=== PATIENT | male | born 1995 | race Caucasian/White ===

== ENCOUNTER 2016-08-08 16:18 | Emergency (ER) | payer OTHER ==
--- NOTE | 2016-08-08 17:28 | ED NURSING NOTES ---
Clinical Report - Nurses [facility] [address] [place] [address] 08/08/2016 16:20 Patient: KVNG CALL TRIAGE Triage time 1627. Acuity: LEVEL 2. Chief Complaint: (headahe, numbness/tingling in bilateral arms/hands). WILLEM COMA SCORE: [place] Coma Scale: 15- eyes open spontaneously (4); best verbal response- oriented x 4 (5); best motor response- obeys commands (6). --16:34 Megan Gaming R.N. 16:27 08/08/16. BP: 147/74. HR: 106. RR: 20 (unlabored). O2 saturation: 97% on room air. Temp: 98.1 F (oral). Pain level now: 01/30. --16:34 Megan Gaming R.N. additional info from pt - when waking up with severe headache, he states he couldn't speak, he wasn't able to shower himself, and then when attempting to eat he couldn't pick pulling machine operator a spoon. --16:55 Megan Gaming R.N. Weight: 81.6 kg estimated. Height/Length: 70 inches Per Patient. BMI: 25.8. --16:27 Megan Gaming R.N. Medications None. --16:35 Megan Gaming R.N. Allergies No Known Drug Allergy. --16:35 Megan Gaming R.N. Medication/allergy information source: the patient. --16:36 Megan Gaming R.N. History Arrived by private vehicle. Historian: patient. Accompanied by family. ( pt c/o waking up around 2:30 pm with severe headache, difficulty breathing, SOB, and numbness/tingling in both arms and hands. pt had been clean of meth and heroin use until he relapsed 2 weeks ago. pt states he last used today at 11am.). Treatment CHESS INSTRUCTOR: None. --16:34 Megan Gaming R.N. SOCIAL HX: Light tobacco smoker (cigarette)- less than 1/2 a pack per day. Occasional alcohol use. History of drug use: heroin, methamphetamines. ABUSE ASSESSMENT: No report of abuse. FALL RISK ASSESSMENT: Fall risk assessment completed. No fall risk identified. NUTRITIONAL RISK ASSESSMENT: The nutritional risk assessment revealed no deficiencies. FUNCTIONAL ASSESSMENT: Functional assessment: no impairments noted. LEARNING NEEDS ASSESSMENT: The learning needs assessment revealed no barriers. SKIN INTEGRITY ASSESSMENT: Skin integrity risk assessment completed. No skin integrity risk identified. --16:36 Megan Gaming R.N. PROBLEMS: Mastoiditis. Ear Infection. Immunizations. Otitis Media. Sinusitis. --16:35 Megan Gaming R.N. ADDITIONAL SURGERIES: no known surgeries. Interventions ID band on patient. To treatment room. --16:34 Megan Gaming R.N. PHYSICAL ASSESSMENT To room via wheelchair. GENERAL / NEURO / PSYCH: Alert. Oriented X 4. Appears anxious. HEENT: No facial asymmetry noted. Mucous membranes are pink. RESPIRATORY: Respirations not labored. CVS: Capillary refill less than 2 seconds. SKIN: Skin is warm and dry. Skin rash. --16:57 Megan Gaming R.N. pt also c/o left foot pain, redness noted. --16:57 Megan Gaming R.N. NURSING PROGRESS NOTES district engineer, pulse oximeter and NIBP monitor placed on patient; machine compositor- Lead II. Patient gowned. Head of bed elevated. Two patient identifiers checked. Call light placed in reach. Side rails up x 1. Bed placed in lowest position. Brakes of bed on. Patient ready for evaluation. --16:49 Megan Gaming R.N. Checked patient name and birthdate: patient confirmed. Blood samples drawn from the right antecubital space with syringe 21g by [employer] per protocol ; labeled in presence of the patient and sent to lab: rainbow set: cardiac enzymes (1st set) and blood culture (1st set). --17:04 Mak Quinones [facility] transferred and report received. --17:32 Joy Sands R.N. 17:51 08/08/2016 K-DUR (Potassium Chloride Luisa ER) PO Tablets 40 meq given. Allergies verified and confirmed 5 rights. --17:51 Joy Sands R.N. DISPOSITION / DISCHARGE 17:51 08/08/16. BP: 110/55. HR: 104. RR: 23. O2 saturation: 100% on room air. Temp: deferred. Naik-Nails pain scale: 10. --17:52 Joy Sands R.N. ( extensive teaching done with pt and mother concerning side effects of taking METH. Mom and pt state understanding but still have concern for stroke and twitching. reassurance given and pt encouraged to stop taking METH. Pt states plan to enter treatment.). --17:54 Joy Sands R.N. Condition at departure: stable. No learning barriers present. Discharge instructions provided and reviewed with the patient and parent. Reviewed medication(s) side effects, precautions, dosing and course information. Prescription(s) given to the patient. Patient and parent verbalized understanding. Written instructions provided in Turkmen. The patient was discharged home and accompanied by parent. He left the Emergency Department ambulatory and via private vehicle. Parent driving. --17:57 Joy Sands R.N. Locked/Released at 08/08/2016 17:58 by Joy Sands R.N.
--- NOTE | 2016-08-08 17:28 | ED CLINICAL REPORT ---
Clinical Report - Physicians/Mid Levels [facility] [address] [place] [address] 08/08/2016 16:20 Patient: KVNG CALL Time Seen: 1630; initial patient contact, initial documentation, patient care assumed. Arrived- By private vehicle. Not in custody. Historian- patient and friend. HISTORY OF PRESENT ILLNESS Chief Complaint: ANXIOUS. This started today. No situational problems. He has not exhibited a behavior change, was not found wandering and is compliant with medication. Recent heroin and methamphetamines use. Last used drugs today. Under influence in ED. Recent alcohol consumption. The symptoms are described as moderate. No injury is present. Additional history - pt states he feels anxious, shaky, hard to breathe, and breathing fast, hands feel numb and tingling. Similar symptoms previously: Recent medical care: Not recently seen/assessed. REVIEW OF SYSTEMS The patient has had a headache and numbness. No chest pain, palpitations, vomiting or diarrhea. also c/o L foot being red and painful. All systems otherwise negative, except as recorded above. PAST HISTORY See nurses notes. ( PROBLEMS: Mastoiditis. Ear Infection. Immunizations. Otitis Media. Sinusitis. --16:35 Megan Gaming R.N. ADDITIONAL SURGERIES: no known surgeries.). SOCIAL HISTORY Light tobacco smoker. Occasional alcohol use. History of heavy IV drug use: heroin, methamphetamines. Recently used drugs today. Under influence in ED. Has social support. Has place to stay. FAMILY HISTORY Negative. ADDITIONAL NOTES The nursing notes have been reviewed with agreement regarding the chief complaint, HPI, ROS, PMH and patient medications and allergies. PHYSICAL EXAM Vital Signs: 08/08/2016 16:27 BP: 147/74. HR: 106. RR: 20. O2 saturation: 97%. Temp: 98.1 F. Pain level now: 8/10. Have been reviewed as abnormal and appear to be correct. Blood pressure normal. Tachycardic. Respiratory rate normal. Temperature normal. Oxygen saturation normal. Appearance: Alert. No acute distress. Appearance is normal. Anxious. Eyes: Pupils equal, round and reactive to light. Neck: Normal inspection. Neck supple. CVS: Heart rate / rhythm abnormal. Tachycardia (ventricular rate = 110). Heart sounds normal. Respiratory: Breath sounds normal. Chest nontender. (mild hyperventilation, RR 36). Abdomen: Soft and nontender. Back: No tenderness. Skin: Skin warm and dry. Normal skin color. Normal skin turgor. Needle tracks are evident (several needle orozco all over, L foot mild erythema and warmth). (several acne spots noted to trunk (chest and back)). Extremities: Extremities exhibit normal ROM. No lower extremity edema. Psych / Neuro: Oriented X 3. Mood and affect normal. Speech normal. Cognition normal. Thought process and content normal. Insight and judgement normal. Cranial nerves normal (as tested). No cerebellar findings. No motor deficit. No sensory deficit. LABS, X-RAYS, AND EKG Laboratory Tests: CBC w Diff: (YOANA: 08/08/2016 17:00) ( [facility] 08/08/2016 17:10) Final results Test Result Flag Units (Reference) WHITE BLOOD COUNT 7.1 K/uL (4.5-11.5) RED BLOOD COUNT 3.93 L M/uL (4.50-5.90) HEMOGLOBIN 12.4 L gm/dL (13.5-17.5) HEMATOCRIT 35.9 L % (41.0-53.0) MEAN CELL VOLUME 92 fL (80-100) MEAN CORPUSCULAR HGB 32 pg (26-34) MEAN CORPUSCULAR HGB CONC 35 g/dL (31-37) RED CELL DISTRIBUTION WIDTH 12.8 % (11.6-14.8) PLATELET COUNT 147 L K/uL (150-400) NEUTROPHIL % 76.9 H % (50-75) LYMPH % 12.7 L % (25-40) MONO % 7.9 % (3-14) EOSINOPHIL % 2.2 % (0-4) BASOPHIL % 0.3 % (0-2) BMP: (YOANA: 08/08/2016 17:00) ( [facility] 08/08/2016 17:14) Final results Test Result Flag Units (Reference) GLUCOSE 75 mg/dL (70-110) BUN 14 mg/dL (7-18) CREATININE 1.2 mg/dL (0.6-1.3) Estimated GFR >60 mL/min Estimated GFR- >60 mL/min Note: Persistent reduction over 3 months in eGFR<60 mL/min/1.73 m2 defines CKD. Patients with eGFR values>=60 mL/min/1.73 m2 may also have CKD if evidence ofpersistent proteinuria. Additional information may be foundat www.kidney.org. SODIUM 136 mmol/L (136-145) POTASSIUM 3.1 L mmol/L (3.5-5.1) CHLORIDE 98 mmol/L (98-107) CARBON DIOXIDE 26 mmol/L (21-32) CALCIUM 8.6 mg/dL (8.5-10.1) . PROGRESS AND PROCEDURES Patient counseled in person regarding the patient's stable condition, test results and diagnosis. 17:27. Differential Diagnosis: Other possible considerations: substance abuse, acne, cellulitis, mrsa, abscess, anxiety, hyperventilation. Above considerations are based on history, physical exam and laboratory data. Differential diagnosis was discussed with patient and patient's family. Disposition: Discharged home in good and unchanged condition (17:29). Condition: good and stable. CLINICAL IMPRESSION Chronic substance abuse- heroin, methamphetamines with intoxication and anxiety. Anxiety reaction with hyperventilation. Cellulitis of the left foot. INSTRUCTIONS Warnings: GENERAL WARNINGS: Return or contact your physician immediately if your condition worsens or changes unexpectedly, if not improving as expected, or if other problems arise. Specifically return if problem worsens. Prescription Medications: Bactrim DS 800 mg / 160 mg: take 1 tablet orally every 12 hours for 10 days. No refill. Follow-up: Follow up with your doctor in about three days as needed. Call for an appointment. Summary of care provided to patient. Understanding of the discharge instructions verbalized by patient. (Electronically signed by Lorraine Hicks A.R.N.P. 08/08/2016 18:33)
--- NOTE | 2016-08-08 17:28 | ED ORDER SUMMARY ---
..... Patient: KVNG CALL OrderSheet [facility] VisitID: [id number] [address] [place] [address] 21y, M Registration Date/Time: 08/08/2016 ORDER SHEET Weight: 81.6 kg (estimated) Allergies: No Known Drug Allergy GENERAL ORDERS: CBC w Diff Urgent (16:41 08/08/2016 HBivens A.R.N.P.) (Ack 16:49 RKaruga) (17:32 RCollier R.N.) BMP Urgent (16:41 08/08/2016 HBivens A.R.N.P.) (Ack 16:49 RKaruga) (17:32 RCollier R.N.) MEDICATION ORDERS: K-Dur PO 40 meq (Do not crush or chew, NOW) (17:24 08/08/2016 HBivens A.R.N.P.) (Ack 17:43 RCollier R.N.) (17:51 RCollier R.N.) IV FLUIDS: ORDER SHEET NOTES: [Electronically signed by Joy Sands R.N. (17:58 08/08/2016)] [Electronically signed by Lorraine Hicks.R.N.P. (18:33 08/08/2016)] [Electronically locked/signed by Joy Sands R.N. (17:58 08/08/2016)]
--- NOTE | 2016-08-08 17:28 | ED ORDER SUMMARY ---
..... Patient: KVNG CALL OrderSheet [facility] VisitID: [id number] [address] [place] [address] 21y, M Registration Date/Time: 08/08/2016 ORDER SHEET Weight: 81.6 kg (estimated) Allergies: No Known Drug Allergy GENERAL ORDERS: CBC w Diff Urgent (16:41 08/08/2016 HBivens A.R.N.P.) (Ack 16:49 RKaruga) (17:32 RCollier R.N.) BMP Urgent (16:41 08/08/2016 HBivens A.R.N.P.) (Ack 16:49 RKaruga) (17:32 RCollier R.N.) MEDICATION ORDERS: K-Dur PO 40 meq (Do not crush or chew, NOW) (17:24 08/08/2016 HBivens A.R.N.P.) (Ack 17:43 RCollier R.N.) (17:51 RCollier R.N.) IV FLUIDS: ORDER SHEET NOTES: [Electronically signed by Joy Sands R.N. (17:58 08/08/2016)] [Electronically signed by Lorraine Hicks.R.N.P. (18:33 08/08/2016)] [Electronically locked/signed by Joy Sands R.N. (17:58 08/08/2016)]
--- NOTE | 2016-08-08 17:28 | ED NURSING NOTES ---
Clinical Report - Nurses [facility] [address] [place] [address] 08/08/2016 16:20 Patient: KVNG CALL TRIAGE Triage time 1627. Acuity: LEVEL 2. Chief Complaint: (headahe, numbness/tingling in bilateral arms/hands). WILLEM COMA SCORE: [place] Coma Scale: 15- eyes open spontaneously (4); best verbal response- oriented x 4 (5); best motor response- obeys commands (6). --16:34 Megan Gaming R.N. 16:27 08/08/16. BP: 147/74. HR: 106. RR: 20 (unlabored). O2 saturation: 97% on room air. Temp: 98.1 F (oral). Pain level now: 01/30. --16:34 Megan Gaming R.N. additional info from pt - when waking up with severe headache, he states he couldn't speak, he wasn't able to shower himself, and then when attempting to eat he couldn't picker machine operator a spoon. --16:55 Megan Gaming R.N. Weight: 81.6 kg estimated. Height/Length: 70 inches Per Patient. BMI: 25.8. --16:27 Megan Gaming R.N. Medications None. --16:35 Megan Gaming R.N. Allergies No Known Drug Allergy. --16:35 Megan Gaming R.N. Medication/allergy information source: the patient. --16:36 Megan Gaming R.N. History Arrived by private vehicle. Historian: patient. Accompanied by family. ( pt c/o waking up around 2:30 pm with severe headache, difficulty breathing, SOB, and numbness/tingling in both arms and hands. pt had been clean of meth and heroin use until he relapsed 2 weeks ago. pt states he last used today at 11am.). Treatment DEDICATED LOCAL TRUCK DRIVER: None. --16:34 Megan Gaming R.N. SOCIAL HX: Light tobacco smoker (cigarette)- less than 1/2 a pack per day. Occasional alcohol use. History of drug use: heroin, methamphetamines. ABUSE ASSESSMENT: No report of abuse. FALL RISK ASSESSMENT: Fall risk assessment completed. No fall risk identified. NUTRITIONAL RISK ASSESSMENT: The nutritional risk assessment revealed no deficiencies. FUNCTIONAL ASSESSMENT: Functional assessment: no impairments noted. LEARNING NEEDS ASSESSMENT: The learning needs assessment revealed no barriers. SKIN INTEGRITY ASSESSMENT: Skin integrity risk assessment completed. No skin integrity risk identified. --16:36 Megan Gaming R.N. PROBLEMS: Mastoiditis. Ear Infection. Immunizations. Otitis Media. Sinusitis. --16:35 Megan Gaming R.N. ADDITIONAL SURGERIES: no known surgeries. Interventions ID band on patient. To treatment room. --16:34 Megan Gaming R.N. PHYSICAL ASSESSMENT To room via wheelchair. GENERAL / NEURO / PSYCH: Alert. Oriented X 4. Appears anxious. HEENT: No facial asymmetry noted. Mucous membranes are pink. RESPIRATORY: Respirations not labored. CVS: Capillary refill less than 2 seconds. SKIN: Skin is warm and dry. Skin rash. --16:57 Megan Gaming R.N. pt also c/o left foot pain, redness noted. --16:57 Megan Gaming R.N. NURSING PROGRESS NOTES child psychometrist, pulse oximeter and NIBP monitor placed on patient; inventory control associate- Lead II. Patient gowned. Head of bed elevated. Two patient identifiers checked. Call light placed in reach. Side rails up x 1. Bed placed in lowest position. Brakes of bed on. Patient ready for evaluation. --16:49 Megan Gaming R.N. Checked patient name and birthdate: patient confirmed. Blood samples drawn from the right antecubital space with syringe 21g by [employer] per protocol ; labeled in presence of the patient and sent to lab: rainbow set: cardiac enzymes (1st set) and blood culture (1st set). --17:04 Mak Quinones [facility] transferred and report received. --17:32 Joy Sands R.N. 17:51 08/08/2016 K-DUR (Potassium Chloride Luisa ER) PO Tablets 40 meq given. Allergies verified and confirmed 5 rights. --17:51 Joy Sands R.N. DISPOSITION / DISCHARGE 17:51 08/08/16. BP: 110/55. HR: 104. RR: 23. O2 saturation: 100% on room air. Temp: deferred. Naik-Nails pain scale: 10. --17:52 Joy Sands R.N. ( extensive teaching done with pt and mother concerning side effects of taking METH. Mom and pt state understanding but still have concern for stroke and twitching. reassurance given and pt encouraged to stop taking METH. Pt states plan to enter treatment.). --17:54 Joy Sands R.N. Condition at departure: stable. No learning barriers present. Discharge instructions provided and reviewed with the patient and parent. Reviewed medication(s) side effects, precautions, dosing and course information. Prescription(s) given to the patient. Patient and parent verbalized understanding. Written instructions provided in Frisian. The patient was discharged home and accompanied by parent. He left the Emergency Department ambulatory and via private vehicle. Parent driving. --17:57 Joy Sands R.N. Locked/Released at 08/08/2016 17:58 by Joy Sands R.N.
--- NOTE | 2016-08-08 18:34 | ED DISCHARGE INSTRUCTIONS ---
Patient: KVNG CALL General Instructions [facility] VisitID: [id number] [place] [address] 21y, M Registration Date/Time: 08/08/2016 Chronic substance abuse- heroin, methamphetamines with intoxication and anxiety. Anxiety reaction with hyperventilation. Cellulitis of the left foot. INSTRUCTIONS Warnings: GENERAL WARNINGS: Return or contact your physician immediately if your condition worsens or changes unexpectedly, if not improving as expected, or if other problems arise. Specifically return if problem worsens. Prescription Medications: Bactrim DS 800 mg / 160 mg: take 1 tablet orally every 12 hours for 10 days. No refill. Follow-up: Follow up with your doctor in about three days as needed. Call for an appointment. Summary of care provided to patient. Understanding of the discharge instructions verbalized by patient. ADDITIONAL INFORMATION Stress Reaction Anxiety is the feeling we all get when we think something bad might happen. It is a normal response to stress and usually causes only a mild reaction. When anxiety becomes more severe, emotions may interfere with daily life. In some cases, you may not even be aware of what it is youre anxious about! During an anxiety reaction, you may feel like you are helpless, nervous, depressed or irritable. Your body may show signs of anxiety in many ways. You may experience dry mouth, shakiness, dizziness, weakness, trouble breathing, chest pressure, headache, nausea, diarrhea, tiredness, inability to sleep or sexual problems. Home Care: 1) Try to locate the sources of stress in your life. They may not be obvious! These may include: -- Daily hassles of life which pile up (traffic jams, missed appointments, car troubles, etc.) -- Major life changes, both good (new baby, job promotion) and bad (loss of job, loss of loved one) -- Overload: feeling that you have too many responsibilities and can't take care of all of them at once -- Feeling helpless, feeling that your problems are beyond what youre able to solve 2) Notice how your body reacts to stress. Learn to listen to your body signals. This will help you take action before the stress becomes severe. 3) When you can, do something about the source of your stress. (Avoid hassles, limit the amount of change that happens in your life at one time and take a break when you feel overloaded). 4) Unfortunately, many stressful situations cannot be avoided. It is necessary to learn HOW TO MANAGE STRESS better. There are many proven methods that will reduce your anxiety. These include simple things like exercise, good nutrition and adequate rest. Also, there are certain techniques that are helpful: relaxation and breathing exercises, visualization, biofeedback and meditation. For more information about this, consult your doctor or go to a local bookstore and review the many books and tapes available on this subject. Follow Up If you feel that your anxiety is not responding to self-help measures, contact your doctor or make an appointment with a counselor. Get Prompt Medical Attention if any of the following occur: -- Your symptoms get worse -- Chest pain or trouble breathing -- Severe headache not relieved by rest and mild pain reliever -- Rapid or irregular heartbeat, fainting Panic Attack A panic attack is an extreme fear reaction that comes on for no apparent reason. Symptoms may include pounding or racing heartbeat, shortness of breath, dizziness, weakness and sweating. There is usually a fear that something terrible will happen or that you may . The attack may last a few minutes up to a few hours. Between attacks things will seem quite normal. This condition has a psychological cause and can be treated with the help of a therapist or psychiatrist. Medication is often used and can be very helpful for this problem. Home Care: Try to identify the sources of stress in your life. It may not be obvious! These may include: Daily hassles of life which pile up (traffic jams, missed appointments, car troubles, etc.). Major life changes, both good (new baby, job promotion) and bad (loss of job, loss of loved one). Overload: feeling that you have too many responsibilities and can't take care of everything at once. Helplessness: feeling like your problems are too much for you to handle. Notice how your body reacts to stress. Learn to listen to your body signals so that you can take action before the stress becomes severe. When possible, AVOID or REDUCE THE CAUSE OF STRESS. Avoid hassles, limit the amount of change that is happening in your life at one time or take a break when you feel overloaded. Unfortunately, many stressful situations cannot be avoided. Therefore, it is necessary to LEARN HOW TO MANAGE STRESS better. There are many proven methods that work and will reduce your anxiety. These include simple things like exercise, good nutrition and adequate rest. Also, there are certain techniques that are helpful: relaxation and breathing exercises, visualization, biofeedback, meditation or simply taking some time-out to clear your mind. For more information about this, consult your doctor or go to a local bookstore and review the many books and tapes available on this subject. Follow Up with your doctor or a therapist as advised. Get Prompt Medical Attention if any of the following occur: Worsening of your symptoms to the point of feeling [id number] A change in the type of pain: if it feels different, becomes more severe, lasts longer, or begins to spread into your shoulder, arm, neck, jaw or back Shortness of breath or increased pain with breathing Increasing feeling of weakness or dizziness Fainting Cough with dark colored sputum (phlegm) or blood Fever of 100.4F (38C) or higher, or as directed by your healthcare provider Swelling, pain or redness in one leg Hyperventilation Syndrome Hyperventilation Syndrome is a condition in which you lose control of your breathing. You may find yourself breathing too fast and/or too deep. This can be triggered by pain, anxiety and emotional stress. If hyperventilation continues for more than a few minutes, it can lead to a number of frightening symptoms, such as: Numbness and tingling of the hands, feet and face Clenching of the fingers or toes Dizziness Feeling like you cannot get enough air Chest pains Fainting or feeling like you are going to faint Once these symptoms begin, it is often hard to stop them because they lead to a cycle of more anxiety and more hyperventilation. It is important to understand that this is not a life-threatening condition and it will pass once you are able to relax. Relaxation and stress management methods can be learned and practiced in advance. These can help in the event of a future attack. Home Care: 1) Rest today until feeling back to normal. 2) If symptoms return: Sit or lie down. Remember that what is happening to you is temporary and will pass. Use the relaxation methods you have learned. It is no longer recommended to breathe into a paper bag. Follow Up with your doctor or as directed by our staff if symptoms recur. Get Prompt Medical Attention if any of the following occur: Increasing shortness of breath Fever of 100.0 F (38 C) or higher, or as directed by your healthcare provider Coughing up blood Chest pain that is made worse with each breath Redness, pain or swelling of the leg Ringing in your ears, Severe headache Weakness or fainting Cellulitis You have an infection of the skin known as cellulitis. This usually starts with a scrape, cut, insect bite, blister or other opening in the skin which becomes infected. This is a serious condition. It must be watched closely to be sure the infection is not spreading. With antibiotic treatment, the size of the red area will gradually shrink in size until the skin returns to normal. This will take 7-10 days. The red area should never increase in size once the antibiotic medicine has been started. Occasionally, an infection will be resistant to one antibiotic and another one will have to be used. Home Care: 1) Limit the use of the affected part, since excess movement can cause the infection to spread. 2) If the infection is on your leg, walk as little as possible during the first few days of the treatment. Keep your leg elevated while sitting. This will reduce swelling. 3) Take all of the antibiotic medicine exactly as directed until it is gone. Be careful not to miss any doses, especially during the first seven days. Follow Up with your doctor or this facility as directed. Check the infected area daily for the warning signs listed below. Get Prompt Medical Attention if any of the following occur: -- Spreading area of redness -- Increasing swelling or pain -- Appearance of pus or drainage -- Fever over 100.4 F (38.0 C) oral, or over 101.4 F (38.6 C) rectal, after two days on antibiotics Staph Infection (MRSA) "Staph" is the short name for the common bacteria called "staphylococcus aureus". Staph bacteria are often present on the skin without causing an infection. If it gets under the skin an infection occurs. This causes redness, tenderness, swelling and sometimes fluid drainage. MRSA stands for "Methicillin-Resistant Staph Aureus". Unlike a common staph infection, MRSA bacteria are resistant to the usual antibiotics and harder to treat. Also, MRSA is more toxic than common staph bacteria. It can spread quickly throughout the body and cause a life-threatening illness. MRSA is spread to others by direct physical contact with the bacteria. MRSA can also be transmitted from items contaminated by a person who has the bacteria, such as bandages, towels, bed sheets, or sports equipment. It is not spread through the air. Once you have a MRSA skin infection, you are at risk of having it recur in the future. If MRSA infection is suspected, the doctor may take a wound culture to confirm the diagnosis. Any abscess will be drained. One or sometimes two antibiotics that work against MRSA will be prescribed. Home Care: 1) Take any antibiotics prescribed exactly as directed until they are gone. 2) Follow the same washing procedures as outlined for Household Members below. 3) Keep draining wounds covered with clean, dry bandages. Change dressings as they become soiled. 4) You and those in contact with you should wash their hands frequently with soap and warm water or use an alcohol-based hand senior quantity surveyor. Do this after each time you change the bandage or touch the wound. 5) Avoid sharing personal items such as towels, washcloths, razors, clothing, or uniforms. Wash soiled sheets, towels or clothes in hot water with laundry detergent. Use an automatic clothes dryer set on high to kill any remaining bacteria. 6) Remove any artificial nails and nail persian. 7) If you use a gym, wipe down equipment before and after each use. Treatment Of Household Members If you have been diagnosed with possible MRSA infection, those living with you are at higher risk of carrying the bacteria on their skin or in their nose, even if there is no sign of infection. Bacteria must be removed from the skin of all household members (including you) at the same time, so that it is not passed back and forth. Advise them to remove the bacteria as follows: Wash your whole body (scalp to toes) daily for five days with Hibiclens (chlorhexidine). Scrub fingernails with a brush for one minute twice a day. If any skin infections are present (boils, abscess, infected cut) these must be treated by a doctor. Washing alone will not treat a MRSA infection. Clean counter tops and children's toys; do not share personal items such as toothbrush and razors. It is okay to share glasses, plates, utensils. If antibiotic ointment was prescribed use it as directed. Follow Up with your doctor or as advised by our staff. If a wound culture was taken, call as directed in two days to obtain the results. If the culture result is positive for MRSA, tell medical personnel in the future that you were treated for this type of infection. Get Prompt Medical Attention if any of the following occur: -- Increasing redness, swelling or pain -- Red streaks in the skin around the wound -- Weakness or dizziness -- New appearance of pus or drainage from the wound -- New fever over 100.4 F (38.0 C) Drug Abuse Use and abuse of such drugs as marijuana, amphetamines (speed, crank), cocaine, heroin or prescription pain medicines (Vicodin, codeine), sedatives and sleeping pills (Valium, Klonopin), PCP, mescaline and LSD may lead to addiction or dependence. Once this occurs, you are at greater risk for any of the following: Craving for the drug and unable to stop using the drug even though you think you want to stop (psychological dependence) Drug withdrawal symptoms if you stop taking the drug (physical dependence) Loss of your job or your family Arrest, conviction and fpc sentence for possession of an illegal substance or for driving under the influence of such a substance Accidental injuries to yourself or others while you are under the influence of the drug (in a car or at home). HIV infection (much greater risk if you use IV drugs) Other sexually transmitted diseases (herpes, chlamydia, gonorrhea and others) Severe and fatal infection of the heart valves (if you use IV drugs) Stroke, heart attack, hepatitis B or C, kidney failure from overdose Home Care: Admit you have a drug problem. Ask for help from your family and close friends. Seek professional help. This could be in the form of individual psychotherapy or counseling or an outpatient, inpatient, or residential drug treatment program. Join a self-help group for drug abuse. Avoid friends who abuse drugs themselves or tempt you to continue abusing drugs. Eat a balanced diet and begin a regular exercise program. Follow Up with your doctor or as advised by our staff. Contact one of the resources below for help. National [place] on Alcoholism and Drug Dependence www.ncadd.org 529-240-IOUN Narcotics Anonymous www.na.org 392-485-4290 National Alcohol and Substance Abuse Information Center (for referral to treatment programs) www.[employer] 118-350-6669 Get Prompt Medical Attention if any of the following occur: Agitation, anxiety, unable to sleep Unintended weight loss (more than 10 to 15 pounds over 3 months) Seizure Chest pain Fever of 100.4F (38C) or higher, or as directed by your healthcare provider Excess drowsiness or inability to be awakened Shortness of breath Slow breathing under 8 breaths per minute Cough with colored sputum Redness, swelling or tenderness at an injection site Sulfamethoxazole, Trimethoprim Oral tablet What is this medicine? SULFAMETHOXAZOLE; TRIMETHOPRIM or SMX-TMP (suhl fuh meth OK barbra zohl; trye METH oh prim) is a combination of a sulfonamide antibiotic and a second antibiotic, trimethoprim. It is used to treat or prevent certain kinds of bacterial infections. It will not work for colds, flu, or other viral infections. How should I use this medicine? Take this medicine by mouth with a full glass of water. Follow the directions on the prescription label. Take your medicine at regular intervals. Do not take it more often than directed. Do not skip doses or stop your medicine early. Talk to your copy cutter regarding the use of this medicine in children. Special care may be needed. This medicine has been used in children as young as 2 months of age. What side effects may I notice from receiving this medicine? Side effects that you should report to your doctor or health livestock caretaker as soon as possible: allergic reactions like skin rash or hives, swelling of the face, lips, or tongue breathing problems fever or chills, sore throat irregular heartbeat, chest pain joint or muscle pain pain or difficulty passing urine red pinpoint spots on skin redness, blistering, peeling or loosening of the skin, including inside the mouth unusual bleeding or bruising unusually weak or tired yellowing of the eyes or skin Side effects that usually do not require medical attention (report to your doctor or health livestock caretaker if they continue or are bothersome): diarrhea dizziness headache loss of appetite nausea, vomiting nervousness What may interact with this medicine? Do not take this medicine with any of the following medications: aminobenzoate potassium dofetilide metronidazole This medicine may also interact with the following medications: NILDA inhibitors like benazepril, enalapril, lisinopril, and ramipril cyclosporine digoxin diuretics indomethacin medicines for diabetes methenamine methotrexate phenytoin potassium supplements pyrimethamine sulfinpyrazone tricyclic antidepressants warfarin What if I miss a dose? If you miss a dose, take it as soon as you can. If it is almost time for your next dose, take only that dose. Do not take double or extra doses. Where should I keep my medicine? Keep out of the reach of children. Store at room temperature between 20 to 25 degrees C (68 to 77 degrees F). Protect from light. Throw away any unused medicine after the expiration date. What should I tell my health care provider before I take this medicine? They need to know if you have any of these conditions: anemia asthma being treated with anticonvulsants if you frequently drink alcohol containing drinks kidney disease liver disease low level of folic acid or [id number] dehydrogenase poor nutrition or malabsorption porphyria severe allergies thyroid disorder an unusual or allergic reaction to sulfamethoxazole, trimethoprim, sulfa drugs, other medicines, foods, dyes, or preservatives or trying to get breast-feeding What should I watch for while using this medicine? Tell your doctor or health livestock caretaker if your symptoms do not improve. Drink several glasses of water a day to reduce the risk of kidney problems. Do not treat diarrhea with over the counter products. Contact your doctor if you have diarrhea that lasts more than 2 days or if it is severe and watery. This medicine can make you more sensitive to the sun. Keep out of the sun. If you cannot avoid being in the sun, wear protective clothing and use a sunscreen. Do not use sun lamps or tanning beds/booths. You have been given the following additional information: Anxiety Reaction Panic Attack Hyperventilation Syndrome Cellulitis MRSA Skin Infection, Suspected Or Confirmed Drug Abuse Sulfamethoxazole, Trimethoprim Oral tablet (Electronically signed by Lorraine Hicks A.R.N.P. 08/08/2016 18:33)
--- NOTE | 2016-08-08 18:34 | ED MAR SUMMARY ---
..... Medication Administration Record [facility] [address] [place] [address] Patient: KVNG CALL Visit ID: [id number] 21y, M Weight: 81.6 kg Height/Length: 70 in BMI: 25.8 ALLERGIES: No Known Drug Allergy Given 17:51 08/08/2016 Joy Sands RPeterNPeter Medication Administered: K-DUR [PO] (POTASSIUM CHLORIDE TIMOTHY ER), Dose: 40 meq Tablets PO. Medication Ordered: K-Dur PO 40 meq (Do not crush or chew, NOW).
--- NOTE | 2016-08-08 18:34 | ED MED RECONCILIATION SUMMARY ---
Patient: KVNG CALL Medication Reconciliation Report [facility] VisitID: [id number] [address] [place] [address] 21y, M Registration Date/Time: 08/08/2016 Weight: 81.6 kg Height/Length: 70 in. BMI: 25.8 ALLERGIES: No Known Drug Allergy The patient's Home Medications are listed below: NONE. The source(s) of the original Home Medication information: patient The following Medications were given to the patient in the Emergency Department: K-DUR [PO] PO 40 meq, administered: 08/08/2016 5:51:00 PM The following Medications were prescribed to the patient: Bactrim DS 800 mg / 160 mg: take 1 tablet orally every 12 hours for 10 days. No refill. -- Lorraine Hicks A.R.N.P.
--- NOTE | 2016-08-08 18:34 | ED MED RECONCILIATION SUMMARY ---
Patient: KVNG CALL Medication Reconciliation Report [facility] VisitID: [id number] [address] [place] [address] 21y, M Registration Date/Time: 08/08/2016 Weight: 81.6 kg Height/Length: 70 in. BMI: 25.8 ALLERGIES: No Known Drug Allergy The patient's Home Medications are listed below: NONE. The source(s) of the original Home Medication information: patient The following Medications were given to the patient in the Emergency Department: K-DUR [PO] PO 40 meq, administered: 08/08/2016 5:51:00 PM The following Medications were prescribed to the patient: Bactrim DS 800 mg / 160 mg: take 1 tablet orally every 12 hours for 10 days. No refill. -- Lorraine Hicks A.R.N.P.
--- NOTE | 2016-08-08 18:34 | ED MAR SUMMARY ---
..... Medication Administration Record [facility] [address] [place] [address] Patient: KVNG CALL Visit ID: [id number] 21y, M Weight: 81.6 kg Height/Length: 70 in BMI: 25.8 ALLERGIES: No Known Drug Allergy Given 17:51 08/08/2016 Joy Sands RPeterNPeter Medication Administered: K-DUR [PO] (POTASSIUM CHLORIDE TIMOTHY ER), Dose: 40 meq Tablets PO. Medication Ordered: K-Dur PO 40 meq (Do not crush or chew, NOW).
== END 2016-08-08 17:57 | disposition home or self-care (01) ==
LOC: ED SRH 16:18
DX: F11.188 Opioid abuse with other opioid-induced disorder (principal); F15.180 Other stimulant abuse with stimulant-induced anxiety disorder; F41.1 Generalized anxiety disorder; R06.4 Hyperventilation; L03.116 Cellulitis of left lower limb
CPT/HCPCS: 90047; 95059